=== PATIENT | male | born 1965 | race Caucasian/White ===

== ENCOUNTER → 2020-02-29 13:55 | Outpatient (CLI) | payer OTHER, SELFPAY ==
[2020-02-29 14:47] LABS: Add Manual Diff / Slide Review NO; Basophils Absolute Auto 100 /uL (0-100); Basophils Percent Auto 1.1 % (0-2); Eosinophils Absolute Auto 100 /uL (0-450); Eosinophils Percent Auto 1.2 % (2-4); Hematocrit 44.4 % (41-53); Hemoglobin 15.2 g/dL (13.5-17.5); Lymphocytes Absolute Auto 1200 /uL (1100-4500); Lymphocytes Percent Auto 18.5 % (25-40); Mean Corpuscular HGB Conc 34.2 % (30-36); Mean Corpuscular Hemoglobin 33.4 PG (26-34); Mean Corpuscular Volume 97.7 fL (80-100); Monocytes Absolute Auto 600 /uL (0-900); Monocytes Percent Auto 8.9 % (3-14); Neutrophils Absolute Auto 4500 /uL (1500-7000); Neutrophils Percent Auto 70.3 % (50-75); Platelet Count 307 X10^3/uL (150-400); Red Blood Cell Count 4.54 X10^6/uL (4.5-5.9); Red Cell Distribution Width 14.9 % (11.6-14.8); White Blood Cell Count 6.4 X10^3/uL (4.5-11.0)
[2020-02-29 16:06] LABS: Alanine Aminotransferase 186 IU/L (<50); Albumin 5.2 g/dL (3.5-5.0); Albumin Globulin Ratio 1.6 (1.0-2.8); Alkaline Phosphatase 68 U/L (38-126); Aspartate Aminotransferase 196 IU/L (17-59); BUN Creatinine Ratio 15.3 (6-22); Bilirubin Total 0.6 mg/dL (0.2-1.3); Blood Urea Nitrogen 17 mg/dL (9-20); Calcium 10.7 mg/dL (8.4-10.2); Carbon Dioxide 23 mmol/L (22-32); Chloride 102 mmol/L (98-107); Estimated Glomerular Filt Rate > 60.0 mL/min (>60); Globulin 3.2 g/dL (1.7-4.1); Glucose 112 mg/dL (70-100); HEMOLYSIS < 15 (0-50); Potassium 4.7 mmol/L (3.4-5.1); Sodium 137 mmol/L (137-145); Total Protein 8.4 g/dL (6.3-8.2)
[2020-02-29 16:20] LABS: Free T4, Direct Thyroxine 1.21 ng/dL (0.78-2.19)
[2020-02-29 17:01] LABS: Thyroid Stimulating Hormone 2.74 uIU/mL (0.47-4.68)
== END ==
PROVIDERS: Family Provider Internal Medicine; Referring Provider Family Medicine; Visit Provider Family Medicine
DX: F10.239 Alcohol dependence with withdrawal, unspecified (principal); F32.9 Major depressive disorder, single episode, unspecified; G47.00 Insomnia, unspecified
CPT/HCPCS: 36415; 80053; 84439; 84443; 85025

== ENCOUNTER → 2020-03-14 12:00 | Outpatient (CLI) | payer OTHER, SELFPAY ==
[2020-03-14 13:30] LABS: Alanine Aminotransferase 257 IU/L (<50); Albumin 5.1 g/dL (3.5-5.0); Albumin Globulin Ratio 1.5 (1.0-2.8); Alkaline Phosphatase 62 U/L (38-126); Aspartate Aminotransferase 201 IU/L (17-59); Bilirubin Total 0.6 mg/dL (0.2-1.3); Blood Urea Nitrogen 23 mg/dL (9-20); Calcium 10.2 mg/dL (8.4-10.2); Carbon Dioxide 25 mmol/L (22-32); Chloride 103 mmol/L (98-107); Estimated Glomerular Filt Rate > 60.0 mL/min (>60); Globulin 3.4 g/dL (1.7-4.1); Glucose 107 mg/dL (70-100); HEMOLYSIS < 15 (0-50); Sodium 138 mmol/L (137-145); Total Protein 8.5 g/dL (6.3-8.2)
[2020-03-17 11:03] LABS: Ethyl Glucuronide Screen Negative ng/mL (Cutoff=500)
== END ==
PROVIDERS: Family Provider Internal Medicine; PCP Family Medicine; Referring Provider Family Medicine; Visit Provider Family Medicine
DX: F10.239 Alcohol dependence with withdrawal, unspecified (principal); F32.9 Major depressive disorder, single episode, unspecified; G47.00 Insomnia, unspecified; R79.89 Other specified abnormal findings of blood chemistry
CPT/HCPCS: 36415; 80053; 80321

== ENCOUNTER → 2020-03-27 11:55 | Outpatient (CLI) | payer OTHER, SELFPAY ==
--- NOTE | 2020-03-27 11:56 | DI.CT.S_ITS ---
PROCEDURE: CT ABDOMEN W CON INDICATIONS: Persistent elevated liver function tests, history of alcohol TECHNIQUE: After the administration of oral and intravenous contrast, 5 mm thick sections acquired from the diaphragms to the iliac crests. 5 mm thick coronal and sagittal reformats were acquired. For radiation dose reduction, the following was used: automated exposure control, adjustment of mA and/or kV according to patient size. COMPARISON: None. FINDINGS: Image quality: Excellent. Lung bases: Lung bases are clear. Heart size is normal. Solid organs: Liver is normal in size and enhancement. The liver density is relatively low, with an appearance suggestive of fatty infiltration. The spleen is not enlarged, varices are not identified. Gallbladder appears partially contracted. Biliary system is non dilated. Pancreas enhances normally. Spleen is normal in size and enhancement. No adrenal nodules. Kidneys are normal in size, without hydronephrosis. Peritoneum and bowel: Contrast enhanced bowel loops appear normal in caliber. No free fluid or air. Nodes and vessels: No retroperitoneal or mesenteric adenopathy by size criteria. Aorta and inferior vena cava are normal in size. Bones: No suspicious bony lesions. No vertebral body compression fractures. Miscellaneous: No ventral hernias. IMPRESSION: No gallstones found, no biliary distention present. No liver mass lesion identified. The liver is relatively low in radiodensity and therefore generalized fatty infiltration throughout the liver may be present. No splenomegaly, ascites or varices are found. Dictated by: Javed Kan M.D. on 03/27/2020 at 15:28 Approved by: Javed Kan M.D. on 03/27/2020 at 15:30
[2020-03-27 13:25] LABS: Add Manual Diff / Slide Review NO; Basophils Absolute Auto 100 /uL (0-100); Eosinophils Absolute Auto 100 /uL (0-450); Eosinophils Percent Auto 2.1 % (2-4); Hematocrit 38.9 % (41-53); Hemoglobin 13.4 g/dL (13.5-17.5); Lymphocytes Absolute Auto 1500 /uL (1100-4500); Lymphocytes Percent Auto 25.6 % (25-40); Mean Corpuscular HGB Conc 34.3 % (30-36); Mean Corpuscular Hemoglobin 33.2 PG (26-34); Mean Corpuscular Volume 96.7 fL (80-100); Monocytes Absolute Auto 400 /uL (0-900); Monocytes Percent Auto 6.6 % (3-14); Neutrophils Absolute Auto 3800 /uL (1500-7000); Neutrophils Percent Auto 64.7 % (50-75); Platelet Count 231 X10^3/uL (150-400); Red Blood Cell Count 4.02 X10^6/uL (4.5-5.9); Red Cell Distribution Width 14.2 % (11.6-14.8); White Blood Cell Count 5.9 X10^3/uL (4.5-11.0)
[2020-03-27 13:38] LABS: Alanine Aminotransferase 61 IU/L (<50); Albumin 4.3 g/dL (3.5-5.0); Albumin Globulin Ratio 1.4 (1.0-2.8); Alkaline Phosphatase 46 U/L (38-126); Amylase 83 U/L (30-110); Aspartate Aminotransferase 39 IU/L (17-59); BUN Creatinine Ratio 18.1 (6-22); Bilirubin Total 0.4 mg/dL (0.2-1.3); Blood Urea Nitrogen 17 mg/dL (9-20); Calcium 9.5 mg/dL (8.4-10.2); Carbon Dioxide 26 mmol/L (22-32); Chloride 101 mmol/L (98-107); Estimated Glomerular Filt Rate > 60.0 mL/min (>60); Glucose 108 mg/dL (70-100); HEMOLYSIS < 15 (0-50); Lipase 239 U/L (23-300); Potassium 5.1 mmol/L (3.4-5.1); Sodium 134 mmol/L (137-145); Total Protein 7.3 g/dL (6.3-8.2)
== END ==
PROVIDERS: Family Provider Internal Medicine; PCP Family Medicine; Referring Provider Family Medicine; Visit Provider Family Medicine
DX: R79.89 Other specified abnormal findings of blood chemistry (principal); F10.239 Alcohol dependence with withdrawal, unspecified
CPT/HCPCS: 36415; 74160; 80053; 82150; 83690; 85025; Q9967

== ENCOUNTER → 2023-05-04 07:27 | Outpatient (CLI) | payer OTHER, MEDICAID, SELFPAY ==
[2023-05-04 08:03] LABS: Hematocrit 37.9 % (41-53); Hemoglobin 12.9 g/dL (13.5-17.5); Mean Corpuscular HGB Conc 33.9 % (30-36); Mean Corpuscular Hemoglobin 35.2 PG (26-34); Mean Corpuscular Volume 103.7 fL (80-100); Platelet Count 183 X10^3/uL (150-400); Red Blood Cell Count 3.66 X10^6/uL (4.5-5.9); Red Cell Distribution Width 13.8 % (11.6-14.8); White Blood Cell Count 5.7 X10^3/uL (4.5-11.0)
[2023-05-04 08:18] LABS: Alanine Aminotransferase 241 IU/L (<50); Albumin 4.3 g/dL (3.5-5.0); Albumin Globulin Ratio 1.5 (1.0-2.8); Alkaline Phosphatase 65 U/L (38-126); Aspartate Aminotransferase 178 IU/L (17-59); BUN Creatinine Ratio 15.4 (6-22); Bilirubin Total 0.5 mg/dL (0.2-1.3); Blood Urea Nitrogen 14 mg/dL (9-20); Calcium 9.4 mg/dL (8.4-10.2); Carbon Dioxide 27 mmol/L (22-32); Chloride 105 mmol/L (98-107); Cholesterol 290 mg/dL (140-199); Estimated Glomerular Filt Rate > 60 mL/min (>60); Globulin 2.8 g/dL (1.7-4.1); Glucose 114 mg/dL (70-100); HDL Cholesterol 99 mg/dL (40-60); HEMOLYSIS < 15 (0-50); LDL Cholesterol Calculated 168 mg/dL (<100); Potassium 4.8 mmol/L (3.4-5.1); Sodium 138 mmol/L (137-145); Total Protein 7.1 g/dL (6.3-8.2); Triglycerides 115 mg/dL (35-150)
[2023-05-04 08:54] LABS: TSH w/ Reflex to FT4 2.64 uIU/mL (0.47-4.68)
[2023-05-04 09:32] LABS: Neutrophils Absolute Manual 2964 /uL (3000-5900); Total Cells Counted 100
[2023-05-04 09:33] LABS: Macrocytosis 1+
== END ==
PROVIDERS: Family Provider Internal Medicine; PCP Family Medicine; Referring Provider Family Medicine; Visit Provider Family Medicine
DX: F10.10 Alcohol abuse, uncomplicated (principal); F32.9 Major depressive disorder, single episode, unspecified; I10 Essential (primary) hypertension
CPT/HCPCS: 36415; 80053; 80061; 84443; 85025

== ENCOUNTER 2023-05-22 00:12 | Emergency (ER) | payer OTHER, MEDICAID, SELFPAY ==
[2023-05-22 00:29] VITALS: BMI 25.7
[2023-05-22 00:48] VITALS: BP 164/115; PULSE 117; RESP 20; O2SAT 96
--- NOTE | 2023-05-22 01:24 | PC.NURSE ---
Patient expressing he wants to leave ER and walk home to get sleep, staff persistent to encourage patient to stay in ED for evaluation. Patient offered many comforting things, food, beverages, bed to rest, medication, etc. Patient refusing all and states to sitter he is leaving. Patient ambulatory in hallway and exited out EMS doors at approximately 0124. [place] [employer] contacted and made aware that patient has eloped. r/t high suicide risk and events that brought patient to ED prior, staff requested assistance from PD to locate patient and bring him back to ED.
[2023-05-22 01:39] LABS: Appearance Urine UA CLEAR; Bilirubin Urine UA NEGATIVE (NEGATIVE); Color Urine UA YELLOW; Glucose Urine UA NEGATIVE (Negative); Ketones Urine UA 1+ (NEGATIVE); Leukocyte Esterase Urine UA NEGATIVE (NEGATIVE); Nitrite Urine UA NEGATIVE (Negative); Occult Blood Urine UA NEGATIVE (Negative); Protein Urine UA TRACE (Negative); Specific Gravity Urine UA 1.025 (1.000-1.035)
[2023-05-22 01:40] LABS: UR Morphine/Opiate cutoff 300 Negative (Negative); Ur Creatinine 50 (Normal); Ur Specific Gravity >1.030 (Normal); Urine Amphetamines Negative (Negative); Urine Barbiturates Negative (Negative); Urine Benzodiazepines Negative (Negative); Urine Cocaine Negative (Negative); Urine MDMA Negative (Negative); Urine Methadone Negative (Negative); Urine Methamphetamines Negative (Negative); Urine Oxycodone Negative (Negative); Urine Phencyclidine Negative (Negative); Urine Tetrahydrocannabinol Negative (Negative); Urine Tricyclic Antidepressant Negative (Negative); Urine pH 5 (Normal)
[2023-05-22 01:58] LABS: Bacteria Urine None Seen; RBC Urine None Seen (0-5/HPF); WBC Urine 0-1/HPF (0-5/HPF)
[2023-05-22 01:59] LABS: Culture Indicated Urine Cult Not Indicated; Hyaline Casts Urine 1-5/LPF; Mucus Urine 2+ (Negative); Squamous Epithelial Cell Urine None Seen (0-5/HPF)
--- NOTE | 2023-05-22 02:17 | PC.NURSE ---
[place] [employer] officer arrives back at ED to update staff that patient has been located at his residence but that they will not be bringing him back to ED, instead they have made arrangements to take patient to [facility] and have been in contact with DCR who will see patient at [facility]. Patient discharged at this time as eloped, but his official time of leaving ED was approximately 0120.
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
== END 2023-05-22 02:25 | disposition left against medical advice (07) ==
PROVIDERS: Emergency Provider Emergency Medicine; Family Provider Internal Medicine; PCP Family Medicine
DX: R45.851 Suicidal ideations (principal)
CPT/HCPCS: 80305; 81001; 99284

== ENCOUNTER 2024-11-01 13:42 | Emergency (ER) | payer SELFPAY ==
[2024-11-01 13:46] VITALS: BP 164/98; PULSE 105; RESP 18; TEMP 36.9; O2SAT 98; BMI 25.7
--- NOTE | 2024-11-01 15:02 | PC.NURSE ---
Pt removed clamp while still in waiting room. No current bleeding observed.
[2024-11-01 15:07] LABS: Add Manual Diff / Slide Review NO; Basophils Absolute Auto 100 /uL (0-100); Basophils Percent Auto 1.6 % (0-2); Eosinophils Absolute Auto 100 /uL (0-450); Eosinophils Percent Auto 0.8 % (2-4); Hematocrit 43.3 % (41-53); Hemoglobin 14.7 g/dL (13.5-17.5); Lymphocytes Absolute Auto 2100 /uL (1100-4500); Lymphocytes Percent Auto 24.8 % (25-40); Mean Corpuscular HGB Conc 33.9 % (30-36); Mean Corpuscular Volume 100.4 fL (80-100); Monocytes Absolute Auto 600 /uL (0-900); Monocytes Percent Auto 7.1 % (3-14); Neutrophils Absolute Auto 5500 /uL (1500-7000); Neutrophils Percent Auto 65.7 % (50-75); Platelet Count 204 X10^3/uL (150-400); Red Blood Cell Count 4.31 X10^6/uL (4.5-5.9); Red Cell Distribution Width 13.8 % (11.6-14.8); White Blood Cell Count 8.4 X10^3/uL (4.5-11.0)
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
[2024-11-01 18:16] VITALS: BP 195/131; PULSE 105; O2SAT 98
[2024-11-01] MEDS: OXYMETAZOLINE NASAL SPRAY 30 ML 2 SPRAYS NASAL (18:19)
== END 2024-11-01 18:32 | disposition home or self-care (01) ==
PROVIDERS: Emergency Medicine; Emergency Provider Physician Assistant; Family Provider Internal Medicine; PCP Family Medicine
DX: R04.0 Epistaxis (principal); I10 Essential (primary) hypertension; F17.210 Nicotine dependence, cigarettes, uncomplicated
CPT/HCPCS: 85025; 99282; 99283

== ENCOUNTER → 2024-11-09 11:00 | Outpatient (CLI) | payer OTHER, SELFPAY ==
[2024-11-09 11:46] LABS: HEMOLYSIS < 15 (0-50); Iron 116 ug/dL (49-181)
[2024-11-09 11:48] LABS: Alanine Aminotransferase 83 IU/L (<50); Albumin 4.4 g/dL (3.5-5.0); Albumin Globulin Ratio 1.6 (1.0-2.8); Alkaline Phosphatase 55 U/L (38-126); Aspartate Aminotransferase 58 IU/L (17-59); Bilirubin Total 0.5 mg/dL (0.2-1.3); Blood Urea Nitrogen 17 mg/dL (9-20); Calcium 9.9 mg/dL (8.4-10.2); Carbon Dioxide 27 mmol/L (22-32); Chloride 104 mmol/L (98-107); Cholesterol 300 mg/dL (140-199); Estimated Glomerular Filt Rate > 60 mL/min (>60); Globulin 2.8 g/dL (1.7-4.1); Glucose 107 mg/dL (70-100); HDL Cholesterol 84 mg/dL (40-60); HEMOLYSIS < 15 (0-50); LDL Cholesterol Calculated 170 mg/dL (<100); Potassium 4.8 mmol/L (3.4-5.1); Sodium 138 mmol/L (137-145); Total Protein 7.2 g/dL (6.3-8.2); Triglycerides 232 mg/dL (35-150)
[2024-11-09 11:57] LABS: Percent Iron Saturation 39 % (20-50); Total Iron Binding Capacity 296 ug/dL (261-462); Transferrin 284 mg/dL (206-381)
[2024-11-09 12:17] LABS: Prostate Specific Antigen Scrn 3.74 ng/mL (0.1-4.0)
[2024-11-09 19:24] LABS: Hepatitis B Surface Antigen NEGATIVE s/c (NEGATIVE)
[2024-11-09 19:43] LABS: HIV 1 & 2 Ab/Ag 4th Gen Combo NEGATIVE (NEGATIVE); Hep C Virus Ab w/Reflex Quant NEGATIVE s/c (NEGATIVE)
[2024-11-10 03:09] LABS: Ceruloplasmin 26.9 mg/dL (16.0-31.0)
[2024-11-10 07:08] LABS: Hepatitis B Surf Ab Qualitativ Non Reactive (.)
== END ==
LOC: LAB 11:01
PROVIDERS: Family Provider Internal Medicine; PCP Family Medicine; Referring Provider Family Medicine; Visit Provider Family Medicine
DX: Z12.5 Encounter for screening for malignant neoplasm of prostate (principal); F10.239 Alcohol dependence with withdrawal, unspecified; F17.200 Nicotine dependence, unspecified, uncomplicated; R79.89 Other specified abnormal findings of blood chemistry; I10 Essential (primary) hypertension; E78.5 Hyperlipidemia, unspecified
CPT/HCPCS: 36415; 80053; 80061; 82390; 83540; 83550; 86706; 86803; 87340; 87389; G0103

== ENCOUNTER 2025-08-15 09:35 | Emergency (ER) | payer OTHER, MEDICAID, SELFPAY ==
[2025-08-15] VITALS (8 sets, daily range): BP systolic 121–157; BP diastolic 91–108; PULSE 79–130; RESP 17–23; TEMP 36.4; O2SAT 95–97; BMI 24.4
--- NOTE | 2025-08-15 09:47 | EKG_ITS ---
[address] [address] Test Date: 2025-08-15 Pat Name: Ernesto Mayfield Department: Room: Gender: Male [employer] Operator: NIMO : 1965 Requested By: Order Number: [id number] Reading MD: Clarke Cai Measurements Intervals [place] Rate: 105 P: 64 MN: 134 QRS: 85 QRSD: 92 T: 69 QT: 344 QTc: 454 Interpretive Statements Sinus tachycardia Possible Left atrial enlargement Incomplete right bundle branch block Electronically Signed On 08-15-2025 17:09:54 PDT by Clarke Cai
[2025-08-15] MEDS: ONDANSETRON 4 MG/2 ML INJ IV (09:58)
[2025-08-15 10:17] LABS: Add Manual Diff / Slide Review NO; Hematocrit 44.8 % (41-53); Hemoglobin 15.3 g/dL (13.5-17.5); Lymphocytes Absolute Auto 2800 /uL (1100-4500); Mean Corpuscular HGB Conc 34.2 % (30-36); Mean Corpuscular Hemoglobin 32.6 PG (26-34); Mean Corpuscular Volume 95.5 fL (80-100); Platelet Count 157 X10^3/uL (150-400)
[2025-08-15 10:19] LABS: Acetaminophen < 10 ug/mL (10-30); Alanine Aminotransferase 463 IU/L (<50); Albumin 5.1 g/dL (3.5-5.0); Albumin Globulin Ratio 1.4 (1.0-2.8); Alkaline Phosphatase 67 U/L (38-126); Blood Urea Nitrogen 36 mg/dL (9-20); Calcium 10.2 mg/dL (8.4-10.2); Carbon Dioxide 24 mmol/L (22-32); Chloride 99 mmol/L (98-107); Estimated Glomerular Filt Rate 50 mL/min (>60); Ethanol (ETOH) < 10 mg/dL (<10); Globulin 3.7 g/dL (1.7-4.1); Glucose 117 mg/dL (70-99); HEMOLYSIS < 15 (0-50); Lipase 1251 U/L (23-300); Potassium 3.9 mmol/L (3.4-5.1); Salicylate < 1.0 mg/dL (<20); Sodium 138 mmol/L (137-145); Total Protein 8.8 g/dL (6.3-8.2)
[2025-08-15] MEDS: SODIUM CHLORIDE 0.9% 1,000 ML 1000 ML IV (10:26)
--- NOTE | 2025-08-15 10:41 | ED_ITS ---
HPI - Abdominal Pain General Chief Complaint: Toxicology Problem Stated Complaint: Per Patient ,Having Liver Function issues Time Seen by Provider: 08/15/25 09:36 Source: patient Mode of arrival: Ambulatory History of Present Illness HPI narrative: Patient 60-year-old male history of hypertension tobacco use alcohol use hyperlipidemia presenting today with shaking. He has been home from [place] for about 2-1/2 weeks. He reports he was on a fishing boat for about 3 months. While on the fishing boat he used Kratom, daily all day. He has not used it in about 2-1/2 weeks. He does admit to alcohol use but he has not had any alcohol in about 5 days. He reports that he stopped drinking alcohol 5 days ago during that time he had some shaking episodes no nausea no vomiting no real hallucinations did not feel like it was alcohol withdrawal. He is worried about his liver function says that he looked online and Kratom can cause elevated liver enzymes. He has no chest pain no shortness of breath. He initially was noted to be tachycardic with heart rate in the 130s was given Ativan and he feels much better. Related Data Previous Rx's ?Medication ?Instructions ?Recorded amlodipine 2.5 mg tablet (Norvasc) 2.5 mg PO DAILY blo od pressure #90 11/09/24 tabs losartan 50 mg tablet 50 mg PO DAILY #90 tabs 01/29 rosuvastatin 10 mg tablet 10 mg PO DAILY #90 tabs 010 01/29 Allergies Allergy/AdvReac Type Severity Reaction Status Date / Time morphine Allergy Mild Hives Verified 08/15/25 09:42 atenolol AdvReac Mild Fatigue Verified 08/15/25 09:42 lisinopril AdvReac Mild Fatigue Verified 08/15/25 09:42 Patient History Medical History Hyperlipidemia, unspecified Tobacco dependence Traumatic amputation of multiple fingers Anxiety with flying Elevated liver function tests Carpal tunnel syndrome (~1998) Anemia (~1991) Hypertension Depression Insomnia Alcohol withdrawal Bereavement Social History Smoking Status: Current every day smoker Smoking Status: Current every day smoker tobacco type: cigarettes alcohol intake frequency: 3 or more drinks per day Alcohol type: beer Exam Initial Vital Signs Initial Vital Signs: Vital Signs Temperature 97.6 F 08/15/25 09:36 Pulse Rate 130 H 08/15/25 09:36 Respiratory Rate 17 08/15/25 09:36 Blood Pressure 157/108 H 08/15/25 09:36 Pulse Oximetry 95 08/15/25 09:36 Oxygen Delivery Method Room Air 08/15/25 09:36 GENERAL: [Alert well-appearing 60-year-old male HEENT: Head atraumatic,EOMI, pupils reactive, face symmetric, left eye discharge mild conjunctivitis s CARDIOVASCULAR: Regular rate and rhythm without murmurs, rubs or gallops. RESPIRATORY: Breath sounds equal bilaterally, no wheezes rales or rhonchi. ABDOMEN: Soft, nontender. Normoactive bowel sounds all 4 quadrants. No guarding or rebound. EXTREMITIES: Normal range of motion, no clubbing or edema. Neurovascularly intact NEUROLOGICAL: Alert and oriented x4.Normal gait and speech. Cranial nerves II through XII grossly intact. SKIN: Warm, dry, no laceration, no petechiae, no rashes or lesions. Course Orders Ordered: ED Orders 08/15/25 09:45 Acetaminophen Stat Complete Blood Count AUTO DIFF Stat Comprehensive Metabolic Panel Stat Ethanol (ETOH) Stat Lipase Stat Salicylate Stat 08/15/25 09:50 EKG-12 Lead Stat 08/15/25 10:41 US abdomen limited Stat 08/15/25 10:51 CT abdomen pelvis w con Stat 08/15/25 12:03 UA Complete [Urinalysis and Microscopic] Stat Urine Drug Screen, Rapid Stat Discontinued Medications Sodium Chloride (Normal Saline 0.9%) 500 mls @ 1,000 mls/hr IV BOLUS PRN PRN Reason: Fluid replacement Sodium Chloride (Normal Saline 0.9%) 500 mls @ 1,000 mls/hr IV BOLUS PRN PRN Reason: Fluid replacement Sodium Chloride (Normal Saline 0.9%) 1,000 mls @ 1,000 mls/hr IV BOLUS ONE Stop: 08/15/25 11:03 Last Admin: 08/15/25 11:10 Dose: Not Given Documented By: EILEEN Sodium Chloride (Normal Saline 0.9%) 500 mls @ 1,000 mls/hr IV BOLUS ONE Stop: 08/15/25 10:43 Last Admin: 08/15/25 11:10 Dose: Not Given Documented By: EILEEN Sodium Chloride (Normal Saline 0.9%) 1,000 mls @ 1,000 mls/hr IV BOLUS ONE Stop: 08/15/25 11:29 Last Infusion: 08/15/25 11:50 Dose: Infused Documented By: Admin: 08/15/25 10:26 Dose: 1,000 mls/hr Documented By: DYLAN Lorazepam (Lorazepam 2 Mg/Ml Inj) 1 mg IV NOW ONE Stop: 08/15/25 09:52 Last Admin: 08/15/25 09:58 Dose: 1 mg Documented By: DYLAN Ondansetron HCl (Ondansetron 4 Mg/2 Ml Inj) 4 mg IV NOW PRN PRN Reason: Nausea And Vomiting Last Admin: 08/15/25 09:58 Dose: 4 mg Documented By: DYLAN Ondansetron HCl (Ondansetron 4 Mg Odt) 4 mg PO NOW PRN PRN Reason: Nausea And Vomiting Vital Signs Vital signs: Vital Signs - 8 hr 08/15/25 09:36 08/15/25 09:40 08/15/25 09:40 Temperature 97.6 F Pulse Rate 130 H 128 H Respiratory Rate 17 Blood Pressure 157/108 H 157/108 H Pulse Oximetry 95 97 Oxygen Delivery Method Room Air 08/15/25 10:00 08/15/25 10:00 08/15/25 10:30 Temperature Pulse Rate 96 H Respiratory Rate 23 Blood Pressure 142/98 H 142/98 H Pulse Oximetry 97 Oxygen Delivery Method 08/15/25 10:30 08/15/25 11:39 08/15/25 11:41 Temperature Pulse Rate 81 79 Respiratory Rate 21 Blood Pressure 121/91 H Pulse Oximetry 96 96 Oxygen Delivery Method Room Air 08/15/25 11:41 08/15/25 12:45 08/15/25 12:46 Temperature Pulse Rate 82 82 Respiratory Rate Blood Pressure 150/98 H Pulse Oximetry 95 97 Oxygen Delivery Method 08/15/25 12:46 Temperature Pulse Rate 81 Respiratory Rate Blood Pressure Pulse Oximetry 97 Oxygen Delivery Method MDM - Abdominal Pain Lab Data 08/15/25 09:45 08/15/25 09:45 Labs: Lab Results 08/15/25 08/15/25 08/15/25 Range/Units 09:45 12:03 12:03 WBC 9.5 (4.5-11.0) X10^3/uL RBC 4.70 (4.5-5.9) X10^6/uL Hgb 15.3 (13.5-17.5) g/dL Hct 44.8 (41-53) % MCV 95.5 (80-100) fL MCH 32.6 (26-34) PG MCHC 34.2 (30-36) % RDW 14.8 (11.6-14.8) % Plt Count 157 (150-400) X10^3/uL Neut % (Auto) 57.0 (50-75) % Lymph % (Auto) 29.8 (25-40) % [place] % (Auto) 9.3 (3-14) % Eos % (Auto) 2.9 (2-4) % Baso % (Auto) 1.0 (0-2) % Neut # (Auto) 5400 (2018-1743) /uL Lymph # (Auto) 2800 (9061-0384) /uL [place] # (Auto) 900 (0-900) /uL Eos # (Auto) 300 (0-450) /uL Baso # (Auto) 100 (0-100) /uL Sodium 138 (137-145) mmol/L Potassium 3.9 (3.4-5.1) mmol/L Chloride 99 (98-107) mmol/L Carbon Dioxide 24 (22-32) mmol/L BUN 36 H (9-20) mg/dL Creatinine 1.57 H (0.66-1.25) mg/dL Estimated GFR 50 L (>60) mL/min BUN/Creatinine Ratio 22.9 H (6-22) Glucose 117 H (70-99) mg/dL Calcium 10.2 (8.4-10.2) mg/dL Total Bilirubin 2.1 H (0.2-1.3) mg/dL AST 453 H (17-59) IU/L ALT 463 H (<50) IU/L Alkaline Phosphatase 67 (38-126) U/L Total Protein 8.8 H (6.3-8.2) g/dL Albumin 5.1 H (3.5-5.0) g/dL Globulin 3.7 (1.7-4.1) g/dL Albumin/Globulin Ratio 1.4 (1.0-2.8) Lipase 1251 H (23-300) U/L Urine Color TNP Urine Appearance TNP Urine pH TNP Normal Ur Specific [place] TNP Urine Protein TNP Urine Glucose (UA) TNP Urine Ketones TNP Urine Occult Blood TNP Urine Nitrate TNP Urine Bilirubin TNP Urine Urobilinogen TNP Ur Leukocyte Esterase TNP Urine RBC 0-1/hpf (0-5/HPF) Urine WBC 0-1/hpf (0-5/HPF) Ur Squamous Epith Cells 0-1 /hpf (0-5/HPF) Urine Bacteria Occasional (0-1) (None) Ur Culture Indicated? Cult not indicated Vol Urine Centrifuged 10ml (spun) Salicylates < 1.0 (<20) mg/dL U Opiates 300ng/mL cut Negative (Negative) Ur Oxycodone Screen Negative (Negative) Urine Methadone Screen Negative (Negative) Acetaminophen < 10 (10-30) ug/mL Ur Barbiturates Screen Negative (Negative) U Tricyclic Antidepress Negative (Negative) Ur Phencyclidine Scrn Negative (Negative) Ur Amphetamines Screen Negative (Negative) U Methamphetamines Scrn Negative (Negative) Ur MDMA Scrn (Ecstasy) Negative (Negative) U Benzodiazepines Scrn Positive H (Negative) Urine Cocaine Screen Negative (Negative) U Marijuana (THC) Screen Negative (Negative) Urine Specific [place] Normal (Normal) Ethyl Alcohol < 10 (<10) mg/dL Ur Creatinine Normal (Normal) Point of care testing: Urine Dip Bedside Urine Glucose Negative Bedside Urine Bilirubin - Negative Bedside Urine Ketone +/- 5 Urine Specific [place] 1.010 Bedside Urine Occult Blood - Negative Bedside Urine pH 6.0 Bedside Urine Protein +/- 15 Bedside Urine Urobilinogen +/- 1mg Bedside Urine Nitrite - Negative Bedside Urine Leukocytes +/- 15 Esterase Imaging Data US - abdomen: Radiologist's Impression: PROCEDURE: US ABDOMEN LIMITED INDICATIONS: ruq TECHNIQUE: Real-time scanning was performed of the abdominal and retroperitoneal organs, with image documentation. COMPARISON: [facility], CT, CT ABDOMEN PELVIS W CON, 08/15/2025, 11:01. FINDINGS: Liver: Liver is normal in size and homogeneous in echotexture. Gallbladder: No gallstones. Wall thickness measures 3 mm. . No pericholecystic edema. Negative sonographic Law's sign. Biliary ducts: Intrahepatic bile ducts are non-dilated. Extrahepatic bile duct caliber is not well seen. Pancreas: Visualized portions of the pancreas are sonographically normal. Miscellaneous: No free abdominal fluid. IMPRESSION: No visualized gallstones. Wall thickness is at the upper limits of normal. Dictated by: Melva Arias M.D. on 08/15/2025 at 12:22 CT scan - abdomen/pelvis: Radiologist's Impression: PROCEDURE: CT ABDOMEN PELVIS W CON INDICATIONS: pancreatitis elevated bili and liver enzymes TECHNIQUE: After the administration of intravenous contrast, axial sections acquired from the lung bases to the pubic symphysis. Coronal and sagittal reformats were performed. For radiation dose reduction, the following was used: automated exposure control, adjustment of mA and/or kV according to patient size. COMPARISON: [facility], CT, CT ABDOMEN W CON, 03/27/2020, 12:49. FINDINGS: Image quality: Diagnostic. Lower Chest: No significant findings. Chronic elevation of the right hemidiaphragm, also present on prior CT scanning 03/27/20. ABDOMEN: Liver: No solid mass. The liver appears likely fatty infiltrated throughout to a moderate degree. Gallbladder: No radiopaque gallstones or wall thickening. Biliary ducts: No biliary dilation. Pancreas: No ductal dilation. Spleen: Size is within normal limits. Adrenal Glands: No adrenal nodules. Kidneys and Ureters: No hydronephrosis. No solid mass. No complex renal cystic lesion which requires follow up. Stomach and Bowel: Normal colonic caliber, without significant wall thickening. Peritoneum: No abnormal intraperitoneal fluid. No free air. Ventral Wall: No significant ventral hernia. Abdominal Nodes: No retroperitoneal or mesenteric adenopathy by size criteria. Vessels: Aorta and inferior vena cava are normal in size. PELVIS: Pelvic Organs: Unremarkable. Bladder: No bladder wall thickening, accounting for underdistention. Pelvic Nodes: No enlarged lymph nodes. Miscellaneous: No inguinal hernias are seen. Bones: No aggressive osseous abnormality. IMPRESSION: Chronic asymmetric elevation of the right hemidiaphragm. The liver appears likely diffusely moderately fatty infiltrated. Spleen is not enlarged and no ascites or prominent varices are found. No evidence of hepatic mass lesion. Dictated by: Javed Kan M.D. on 08/15/2025 at 11:12 Approved by: Javed Kan M.D. on 08/15/2025 at 11:17 ECG Data Attestation: I personally reviewed and interpreted this ECG as follows: Interpretation: Sinus tachycardia rate 105 NE interval 134 QRS [address] changes MDM Narrative Medical decision making narrative: MDM CC: Abnormal lab Complicating co-morbidities: Polysubstance abuse Data collected from: Patient Medical records reviewed: [ ] Differential considered: Cirrhosis pancreatitis choledocholithiasis Exam documented above, pertinent findings include: Patient is awake alert. Initially he was tachycardic but that improved abdomen is soft nontender nondistended negative right upper quadrant pain no epigastric Lab Test results independently reviewed as above. Pertinent findings: Lipase elevated 1250 Bilirubin 2.1 AST 453 ALT 463 alk-phos 66, previously in November liver enzymes were normal CBC no leukocytosis no anemia Independently reviewed EKG as above Sinus tachycardia no ischemia Imaging studies independently reviewed: Abdominal CT chronic elevation of right hemidiaphragm liver is diffusely fatty infiltrated no evidence of ascites or mass Ultrasound no cholelithiasis no acute cholecystitis Consultations: [ ] Treatments: None Re-evaluations: Patient is feeling better after Ativan he initially was tachycardic and a little shaky. Discussion: Patient 60-year-old male presenting today with elevated liver enzymes. Seems like they were maybe checked as an outpatient by doing have record of it. He has no nausea no vomiting abdomen is soft and nontender. He has mild pancreatitis with a lipase of 1200 but no symptoms and tolerating p.o. fluids. Patient has no right upper quadrant pain. Imaging does not show any evidence of acute cholecystitis or coli lithiasis. In without pain it is still possible that he has choledocholithiasis I do not suspect this without pain or vomiting. He is tolerating p.o. fluids. He was given Ativan for his tachycardia and possible withdrawal but seems to be doing very well now. I also do not think he is in alcohol withdrawal. He has had 5 days without alcohol though it is still possible. Does not need medication. At this time recommend repeat liver enzymes as an outpatient. Discussed with him to a stained from all substances. Discharge Plan Departure Patient Disposition: Home Clinical Impression: Elevated liver enzymes, Pancreatitis Instructions: DI for Pancreatitis Activity Restrictions/Additional Instructions: *You have been diagnosed with mild case of pancreatitis elevated liver enzymes *What to do: At this time do not drink alcohol or take other drugs. Please have liver enzymes rechecked with your primary care provider next week increase fluids such as water and Gatorade and food as tolerated *Continue to take medications as directed *Follow up with your primary care provider in 2-3 days or call [phone] *Return to ER if you should have increasing abdominal pain nausea vomiting or any new, worsening or concerning symptoms Prescriptions: No Action amlodipine [Norvasc] 2.5 mg tablet 2.5 mg PO DAILY Qty: 90 3RF rosuvastatin 10 mg tablet 10 mg PO DAILY Qty: 90 3RF losartan 50 mg tablet 50 mg PO DAILY Qty: 90 3RF Referrals: Lily Coronado DO [Primary Care Provider, Family Practice] Stand Alone Forms: Patient Portal/API
--- NOTE | 2025-08-15 10:51 | DI.CT.S_ITS ---
PROCEDURE: CT ABDOMEN PELVIS W CON INDICATIONS: pancreatitis elevated bili and liver enzymes TECHNIQUE: After the administration of intravenous contrast, axial sections acquired from the lung bases to the pubic symphysis. Coronal and sagittal reformats were performed. For radiation dose reduction, the following was used: automated exposure control, adjustment of mA and/or kV according to patient size. COMPARISON: [facility], CT, CT ABDOMEN W CON, 03/27/2020, 12:49. FINDINGS: Image quality: Diagnostic. Lower Chest: No significant findings. Chronic elevation of the right hemidiaphragm, also present on prior CT scanning 03/27/20. ABDOMEN: Liver: No solid mass. The liver appears likely fatty infiltrated throughout to a moderate degree. Gallbladder: No radiopaque gallstones or wall thickening. Biliary ducts: No biliary dilation. Pancreas: No ductal dilation. Spleen: Size is within normal limits. Adrenal Glands: No adrenal nodules. Kidneys and Ureters: No hydronephrosis. No solid mass. No complex renal cystic lesion which requires follow up. Stomach and Bowel: Normal colonic caliber, without significant wall thickening. Peritoneum: No abnormal intraperitoneal fluid. No free air. Ventral Wall: No significant ventral hernia. Abdominal Nodes: No retroperitoneal or mesenteric adenopathy by size criteria. Vessels: Aorta and inferior vena cava are normal in size. PELVIS: Pelvic Organs: Unremarkable. Bladder: No bladder wall thickening, accounting for underdistention. Pelvic Nodes: No enlarged lymph nodes. Miscellaneous: No inguinal hernias are seen. Bones: No aggressive osseous abnormality. IMPRESSION: Chronic asymmetric elevation of the right hemidiaphragm. The liver appears likely diffusely moderately fatty infiltrated. Spleen is not enlarged and no ascites or prominent varices are found. No evidence of hepatic mass lesion. Dictated by: Javed Kan M.D. on 08/15/2025 at 11:12 Approved by: Javed Kan M.D. on 08/15/2025 at 11:17
[2025-08-15 12:25] LABS: UR Morphine/Opiate cutoff 300 Negative (Negative); Ur Specific Gravity Normal (Normal); Urine MDMA Negative (Negative); Urine Methamphetamines Negative (Negative); Urine Tetrahydrocannabinol Negative (Negative)
[2025-08-15 12:26] LABS: Urine Tricyclic Antidepressant Negative (Negative)
[2025-08-15 12:54] LABS: Culture Indicated Urine Cult Not Indicated
== END 2025-08-15 12:55 | disposition home or self-care (01) ==
PROVIDERS: Emergency Provider Emergency Medicine; Family Provider Internal Medicine; PCP Family Medicine
DX: K85.90 Acute pancreatitis without necrosis or infection, unspecified (principal); R74.8 Abnormal levels of other serum enzymes; R10.11 Right upper quadrant pain; R00.0 Tachycardia, unspecified
CPT/HCPCS: 36415; 74177; 76705; 80053; 80305; 80320; 80329; 81001; 81003; 83690; 85025; 93005; 96361; 96374; 96375; 99284; G0480; J2060; J2405; J7030; J7040; Q9967